=== PATIENT | male | born 1980 | race Caucasian/White ===

== ENCOUNTER 2022-01-30 14:58 | Emergency (ER) | payer MEDICARE, MEDICAID ==
[2022-01-30] MEDS: Ibuprofen 400 MG Tab PO ONE (15:50)
== END 2022-01-30 17:33 | disposition home or self-care (01) ==
LOC: JP.ED 14:58
DX: K59.01 Slow transit constipation (principal); I10 Essential (primary) hypertension; Z79.899 Other long term (current) drug therapy
CPT/HCPCS: 74019; 81001; 99284; A9270